=== PATIENT | female | born 1985 | race Caucasian/White ===

== ENCOUNTER 2016-10-07 07:38 | Day surgery (SDC) | payer BC ==
[~2016-10-07 07:38] MED LIST: CLARITIN10 M6 PO; LABETALOL HCL200 M1 PO; NORCO 5-325 TA1 EACH PO; PROAIR HFA8.5 GM INH; SINGULAIR10 M1 PO; WELLBUTRIN SR100 M2 PO; WELLBUTRIN XL150 M1 PO; ZOFRAN4 M2 SL
[2016-10-07 08:38] LABS: BASO % 0.1 % (0-2); EOS % 1.2 % (0-7); EOSINOPHIL ABSOLUTE COUNT 0.1 tho/cmm (0.0-0.7); HCT-HEMATOCRIT 38.7 % (34.0-49.0); HGB-HEMOGLOBIN 13.3 gm/dl (12.0-15.5); IMMATURE GRANULOCYTES ABSOLUTE 0.02 tho/cmm (0-0.03); IMMATURE GRANULOCYTES PERCENT 0.3 % (0-0.3); LYMPH % 38.8 % (20-45); MCH (MEAN CORPUSCULAR HGB) 29.4 pg (28.0-32.0); MCHC MEAN CORPUSCULAR HGB CONC 34.4 % (32.0-36.0); MCV (MEAN CELL VOLUME) 85.6 fl (82.0-96.0); MEAN PLATELET VOLUME 10.1 cmc (9.4-12.4); MONO % 7.3 % (0-12); MONOCYTE ABSOLUTE COUNT 0.6 tho/cmm (0.0-1.2); NEUTROPHIL ABSOLUTE COUNT 4.1 tho/cmm (1.6-8.0); NEUTROPHIL-AUTOMATED 4.1 tho/cmm (1.6-8.0); NEUTROPHILS % 52.3 % (40-80); PLATELET COUNT 318 tho/cmm (150-450); RED BLOOD COUNT 4.52 mil/cmm (4.00-5.20); WHITE BLOOD COUNT 7.8 tho/cmm (4.0-10.0)
[2016-10-07 08:47] LABS: ANION GAP 12 mmol/L (0-20); BLOOD UREA NITROGEN 13 mg/dl (6-24); CALCIUM 8.7 mg/dl (8.5-10.5); CARBON DIOXIDE-VENOUS 27 mmol/L (22-32); CHLORIDE 109 mmol/l (96-110); CREATININE 0.81 mg/dl (0.50-1.10); GLUCOSE 94 mg/dL (70-110); POTASSIUM 3.8 mmol/L (3.7-5.1); SODIUM 144 mmol/L (135-145); eGFR VALUE FOR BLACK >90 mL/Min
[2016-10-08] MEDS ORDERED: SYNTHROID125 MC1 PO (17:59)
[2016-10-08] MEDS ORDERED: NORCO 5-325 TA1 EACH PO (18:00)
[2016-10-08] MEDS ORDERED: [UNRECOGNIZED DRUG - CODE] PO (18:01)
[2016-10-08] MEDS ORDERED: ZOFRAN ODT8 MG PO (18:02)
--- NOTE | 2016-10-08 18:30 | NUR ---
VIRTUAL CARE NOTE: PT DRESSED, READY FOR DISCHARGE TEACHING. INFORMATION GIVEN TO PT, DENIES QUESTIONS. INFORMED FLOOR NURSE DISCHARGE TEACHING COMPLETE.
== END 2016-10-08 18:50 ==
LOC: SRG 07:38 → SHSA 07:41 → ORE 10:14 → PACU 12:36 → 5WD 13:30
PROVIDERS: Anesthesiology
PROC: 0GTH0ZZ Resection of Right Thyroid Gland Lobe, Open Approach (ICD-10-PCS; principal; 2016-10-07)
DX: E07.9 Disorder of thyroid, unspecified (principal); I10 Essential (primary) hypertension; E66.9 Obesity, unspecified; E78.5 Hyperlipidemia, unspecified; F32.9 Major depressive disorder, single episode, unspecified; J45.909 Unspecified asthma, uncomplicated; Z79.899 Other long term (current) drug therapy; Z88.1 Allergy status to other antibiotic agents; Z91.048 Other nonmedicinal substance allergy status; Z86.14 Personal history of Methicillin resistant Staphylococcus aureus infection; Z85.850 Personal history of malignant neoplasm of thyroid; Z90.89 Acquired absence of other organs; Z98.890 Other specified postprocedural states
CPT/HCPCS: J0690; J1100; J1200; J2270; J2405; J3010